=== PATIENT | female | born 2000 | race Caucasian/White ===

== ENCOUNTER 2020-07-11 13:36 | Emergency (ER) | payer OTHER ==
[2020-07-11 15:02] LABS: HEMOGLOBIN 13.9 gm/dl (12.3-15.3); RED BLOOD COUNT 4.52 M/UL (4.00-5.10)
[2020-07-11 15:23] LABS: BUN/CREATININE RATIO 16 (0-10)
[2020-07-11] MEDS ORDERED: PENVEE K 500 M500 MG PO (15:37)
[2020-07-11] MEDS ORDERED: CELEBREX100 MG PO (15:59)
[2020-07-11] MEDS ORDERED: HYDROCODON-ACE1 EAC4 PO (20:33)
== END 2020-07-11 16:20 | disposition home or self-care (01) ==
LOC: ER1 13:36
PROVIDERS: Emergency Medicine
DX: K04.7 Periapical abscess without sinus (principal)
CPT/HCPCS: 80053; 84703; 85025; 99283

== ENCOUNTER 2021-03-06 13:09 | Emergency (ER) | payer OTHER ==
[~2021-03-06 13:09] MED LIST: CELEBREX100 MG PO; HYDROCODON-ACE1 EAC4 PO; PENVEE K 500 M500 MG PO
== END 2021-03-06 15:40 | disposition home or self-care (01) ==
LOC: ER1 13:09
DX: U07.1 COVID-19 (principal)
CPT/HCPCS: 99284; U0002

== ENCOUNTER 2021-09-24 18:20 | Emergency (ER) | payer OTHER ==
[2021-09-24 19:28] LABS: HEMOGLOBIN 13.4 gm/dl (12.3-15.3); RED BLOOD COUNT 4.3 M/UL (4.00-5.10); WHITE BLOOD COUNT 9.9 K/UL (4.5-11.0)
[2021-09-24 19:55] LABS: BUN/CREATININE RATIO 19 (0-10)
== END 2021-09-24 20:30 | disposition left against medical advice (07) ==
LOC: ER1 18:20
PROVIDERS: Physician Assistant
DX: K59.00 Constipation, unspecified (principal)
CPT/HCPCS: 80053; 81001; 83690; 84703; 85025; 99283

== ENCOUNTER 2021-12-25 22:14 | Emergency (ER) | payer OTHER ==
[2021-12-26] MEDS ORDERED: PROVENTIL HFA6.7 GM INH (01:21)
[2021-12-26] MEDS ORDERED: IBUPROFEN600 MG PO (01:21)
[2021-12-26] MEDS ORDERED: ZOFRAN ODT 4 MG4 MG PO (01:21)
== END 2021-12-26 01:28 | disposition home or self-care (01) ==
LOC: ER1 22:14
DX: U07.1 COVID-19 (principal)
CPT/HCPCS: 71045; 87081; 87880; 99283; U0002